=== PATIENT | female | born 1990 | race American Indian/Alaskan Native ===

== ENCOUNTER 2019-04-08 22:34 | Inpatient (IN) | payer MEDICAID, OTHER ==
[2019-04-09] MEDS ORDERED: STADOL IV PRN (00:45)
[2019-04-09] MEDS ORDERED: PITOCin/NS 30 UNIT/500ML 30 UNITS/500 ML BAG IV SCH (00:47)
[2019-04-09 00:53] LABS: Hematocrit 31.6 % (30.3-42.9); Hemoglobin 10.3 gm/dl (10.1-14.3); Mean Corpuscular HGB Conc 33 % (30-34); Mean Corpuscular Volume 77 fl (79-97); Platelet Count 327 K/mm3 (140-440); Red Blood Count 4.09 M/mm3 (3.65-5.03); Red Cell Distribution Width 14.4 % (13.2-15.2)
[2019-04-09] MEDS: LACTATED RINGERS 1,000 ML IV SCH ×2 (01:33→05:35)
[2019-04-09] MEDS ORDERED: NARCAN 2 MG/2 ML IV PRN (06:29)
--- NOTE | 2019-04-09 06:30 | Anesthesia Consultation ---
Anesthesia Consult and Med Hx Date of service: 04/09/19 - Airway Anesthetic Teeth Evaluation: Good ROM Head & Neck: Adequate Mental/Hyoid Distance: Adequate Mallampati Class: Class II Intubation Access Assessment: Probably Good - Pulmonary Exam CTA: Yes - Cardiac Exam Cardiac Exam: RRR - Pre-Operative Health Status ASA Pre-Surgery Classification: ASA2 Proposed Anesthetic Plan: Epidural - Pulmonary Hx Asthma: No COPD: No Hx Pneumonia: No - Cardiovascular System Hx Hypertension: No - Central Nervous System Hx Seizures: No Hx Psychiatric Problems: No - Endocrine Hx Renal Disease: No Hx End Stage Renal Disease: No Hx Hypothyroidism: No Hx Hyperthyroidism: No - Hematic Hx Anemia: No Hx Sickle Cell Disease: No (TRAIT)
--- NOTE | 2019-04-09 06:31 | Anesthesia Day of Surgery ---
Anesthesia Day of Surgery - Day of Surgery Patient Examined: Yes Patient H&P Reviewed: Yes Patient is NPO: No
[2019-04-09] MEDS ORDERED: fentaNYL-BUPIV 2 MCG/ML-0.125% 200 MCG/100 ML BAG EPIDURAL SCH (07:00)
--- NOTE | 2019-04-09 08:41 | Event Note ---
Date: 04/09/19 Assumed care of patient at 08:00. Patient reports she has ruptured membranes with meconium. Patient is resting in lateral position with oxygen per face mask. She has been receiving Pitocin augmentation of labor. Category 2 heart rate tracing: Normal baseline FHR with moderate variability and accelerations with occasional variable FHR deceleration. No repetitive decelerations. Patient is comfortable since receiving epidural.
[2019-04-09] MEDS ORDERED: PITOCin/NS 20 UNIT/1000ML DRIP 20,000 MILLIUNITS/1,000 ML BAG IV ONE (09:01)
--- NOTE | 2019-04-09 09:03 | History and Physical Report ---
History of Present Illness Date of examination: 04/09/19 Date of admission: 04/08/2019 Chief complaint: Leaking of fluid History of present illness: 29 year old complains of leaking of water from vagina since between 5 PM and 6 PM yesterday evening. Patient states fluid was green when water broke. Patient also reports contractions. Patient denies vaginal bleeding. Patient received care at [facility] and records are available. LMP 07/02/18. EDC 04/08/19 (confirmed by 12 week US). EGA 40 weeks, 1 day gestation. significant for the following: anemia (supplemented with oral iron), trichomonas (treated), ASC-US pap with + HR HPV. labs are as follows: O+, antibody screen negative, rubella immune, RPR nonreactive, hepatitis B surface antigen negative, HIV negative, hemoglobin electrophoresis AA, GC negative, CT negative, trichomonas negative/positive/negative, 1 hour sugar test 96, GBS negative. Past History Past Medical History: no pertinent history Past Surgical History: other (EAB 2009) [facility] History: abnormal PAP smear, trichomonas (treated and cured). denies: chlamydia, gonorrhea, hepatitis B, hepatitis C, herpes, HIV, syphilis Family/Genetic History: cancer (ovarian cancer (mother, age 38)) Social history: single, lives with family, smoking, full code, other (marijuana use early in ). denies: alcohol abuse, IV drug use - Obstetrical History Expected Date of Delivery: 04/08/19 Actual Gestation: 40 Week(s) 1 Day(s) : 2 Para: 0 Hx # Term Pregnancies: 0 Number of Pregnancies: 0 Spontaneous Abortions: 0 Induced : 1 Number of Living Children: 0 Medications and Allergies Allergies Allergy/AdvReac Type Severity Reaction Status Date / Time No Known Allergies Allergy Unverified 04/08/19 23:51 Home Medications Medication Instructions Recorded Confirmed Last Taken Type No Known Home Medications [No 04/09/19 04/09/19 Unknown History Reported Home Medications] Active Meds: Active Medications Butorphanol Tartrate (Stadol) 2 mg IV Q2H PRN PRN Reason: Pain , Severe (7-10) Last Admin: 04/09/19 01:42 Dose: 2 mg Documented by: Ephedrine Sulfate (Ephedrine Sulfate) 10 mg IV Q2M PRN PRN Reason: Hypotension Oxytocin/Sodium Chloride (Pitocin/Ns 30 Unit/500ml) 30 units in 500 mls @ 4 mls/hr IV TITR JAVON; Protocol Last Admin: 04/09/19 01:34 Dose: 4 ml/hr, 4 mls/hr Documented by: Lactated Ringer's (Lactated Ringers) 1,000 mls @ 125 mls/hr IV DIRECT JAVON Last Admin: 04/09/19 05:35 Dose: 125 mls/hr Documented by: Fentanyl/Bupivacaine/Sodium Chlor (Fentanyl-Bupiv 2 Mcg/Ml-0.125%) 200 mcg in 100 mls @ 12 mls/hr EPIDURAL TITR JAVON; Protocol Last Admin: 04/09/19 06:48 Dose: 12 mls/hr Documented by: Naloxone HCl (Narcan 2 Mg/2 Ml) 0.2 mg IV Q5M PRN PRN Reason: Respiratory sedation Review of Systems All systems: negative (leaking of fluid and contractions) - Vital Signs Vital signs: Vital Signs Pulse BP 97 H 127/75 04/08/19 22:44 04/08/19 22:44 Temp Pulse Resp BP Pulse Ox 98.3 F 65 18 100/57 100 04/09/19 07:51 04/09/19 08:54 04/09/19 07:51 04/09/19 08:47 04/09/19 08:54 - Physical Exam Abdomen: Positive: normal appearance, soft. Negative: distention, tenderness, guarding, rigidity Genitourinary (Female): Positive: normal external genitalia, normal perenium. Negative: perineal/vulvar lesions Uterus: Positive: enlarged (size=dates) Extremities: Positive: normal. Negative: tenderness, edema - Obstetrical FHR: category 2 Uterine Contraction Monitor Mode: External Cervical Dilatation: 5 Cervical Effacement Percentage: 90 station: -1 Uterine Contraction Pattern: Irregular Uterine Contraction Intensity: Moderate Results Result Diagrams: 04/08/19 23:20 Abnormal lab results 04/08/19 Range/Units 23:20 MCV 77 L (79-97) fl MCH 25 L (28-32) pg All other labs normal. Assessment and Plan A: at 40 weeks, 1 day gestation. Spontaneous rupture of membranes; meconium stained amniotic fluid. GBS negative. P: Continuous EFM. Pitocin augmentation of labor as tolerated by fetus and patient.
[2019-04-09] MEDS ORDERED: NACL 0.9% 1000 ML 1,000 ML ONE (09:38)
--- NOTE | 2019-04-09 09:45 | Event Note ---
Date: 04/09/19 IUPC placed. Amnioinfusion ordered.
[2019-04-09] MEDS ORDERED: BRETHINE SUB-Q PRN (09:57)
[2019-04-09] MEDS ORDERED: LACTATED RINGERS 1,000 ML IV SCH ×2 (10:00→12:00)
[2019-04-09] MEDS ORDERED: NACL 0.9% 1000 ML 1,000 ML VG SCH (10:00)
[2019-04-09] MEDS ORDERED: PITOCin/NS 20 UNIT/1000ML DRIP 20 UNITS/1,000 ML BAG IV SCH ×3 (10:00→13:00)
[2019-04-09] MEDS ORDERED: AMPICILLIN/NS 2 GM/100 ML 2 GM/100 ML BAG IV ONE (11:19)
--- NOTE | 2019-04-09 11:51 | Event Note ---
Date: 04/09/19 Late declerations noted per monitor. Normal baseline FHR and moderate variability. Spoke with Dr. Espinoza re: FHR tracing and section called. Discussed need for C/S with patient and family.
[2019-04-09] MEDS ORDERED: PEPCID IV ONE ×2 (11:54→11:58)
[2019-04-09] MEDS ORDERED: BICITRA PO ONE (11:54)
[2019-04-09] MEDS ORDERED: REGLAN IV ONE (11:54)
[2019-04-09] MEDS ORDERED: BICITRA ONE (11:57)
[2019-04-09] MEDS ORDERED: REGLAN ONE (11:57)
[2019-04-09] MEDS ORDERED: ANCEF/STERILE WATER 2 GM/20 ML 2 GM/20 ML SYRINGE IV ONE (11:58)
[2019-04-09] MEDS ORDERED: ANCEF/STERILE WATER 2 GM/20 ML 2 GM/20 ML SYRINGE IV NR (12:00)
[2019-04-09] MEDS ORDERED: WATER FOR IRRIG STERILE IR ONE (12:18)
[2019-04-09] MEDS ORDERED: NACL 0.9% IR ONE (12:18)
[2019-04-09] MEDS ORDERED: XYLOCAINE MPF 2% ONE (12:48)
--- NOTE | 2019-04-09 12:49 | Operative Report ---
Operative Report Operative Report: Date of procedure: 04/09/2019 Pre-operative diagnosis: 1. Intrauterine of 40-1/7 weeks 2. Non-re assuring surveillance Post-operative diagnosis: Same Procedure name(s): Primary low transverse section Surgeon: Allan Espinoza MD Exhaust Machine Operator: None Anesthesia: Epidural anesthesia by Clinton Ngo CRNA EBL: 800 mL Findings: A 2615 g male infant Apgars 8 at 1 minute 9 at 5 minutes. 2+ meconium fluid. Normal uterus. Normal tubes and ovaries bilaterally. Procedure: After the patient was prepped and draped in usual sterile fashion, and after satisfactory level of epidural anesthesia was obtained, the skin knife was used to make a transverse skin incision. The incision was excised down to layer of the fascia, which was nicked in the midline and extended laterally using the Bovie cautery. The rectus muscles were dissected off the rectus fascia both superiorly and inferiorly. The rectus bellies in the midline, and the peritoneum was entered under direct visualization. The peritoneal incision was extended superiorly and inferiorly. A bladder flap was created and the bladder blade was then placed. The uterus was scored in a curvilinear linear fashion, entered in the midline revealing 2+ meconium amniotic fluid. The infant's head was delivered onto the surgical field, and the oropharynx and nasopharynx were bulb suctioned. The rest of the 's body was delivered, cord was doubly clamped and cut and the was handed to the waiting respiratory team. Cord blood was then obtained. The placenta was manually removed from the uterus, and the uterus removed from its normal anatomical position. After gentle uterine lavage, the incision was inspected and found to be without extensions. It was then closed in 2 layers using 0 Vicryl suture in a running interlocking fashion, the second layer imbricating the first. After good hemostasis was achieved, copious amounts or irrigation was performed, and the gutters were suctioned free of blood and blood clots. Tisseel sealant was sprayed across the uterine incision. The uterus was then returned to its normal anatomical position, and after excellent hemostasis assured, the peritoneum was re-approximated using 3-0 Vicryl suture in a running interlocking fashion, and then the rectus muscles were re-approximated using 3-0 Vicryl suture in a [id number] configuration. The fascia was then re- approximated using 0 Vicryl suture in running interlocking fashion. The subcutaneous layer was made hemostatic using Bovie cautery, the Tisseel sealant was sprayed across the fascial incision and the skin edges re-approximated using 4-0 Vicryl suture in a sub-cuticular fashion. Patient tolerated the procedure well was transported to recovery in stable condition.
[2019-04-09] MEDS ORDERED: SENOKOT PO PRN (12:55)
[2019-04-09] MEDS ORDERED: ZOFRAN IV PRN ×2 (12:55→13:13)
[2019-04-09] MEDS ORDERED: LANSINOH TP PRN (12:55)
[2019-04-09] MEDS ORDERED: TUCKS PAD TP PRN (12:55)
[2019-04-09] MEDS ORDERED: TYLENOL PO PRN (12:55)
[2019-04-09] MEDS ORDERED: NARCAN 0.4 MG/1 ML IV PRN ×2 (12:55→13:13)
[2019-04-09] MEDS ORDERED: SODIUM CHLORIDE FLUSH SYRINGE 10 ML IV NR ×2 (13:00→14:00)
--- NOTE | 2019-04-09 13:07 | Post Anesthesia Evaluation ---
- Post Anesthesia Evaluation Patient Participated: Yes Airway Patent: Yes Stable Respiratory Function: Yes Nausea/Vomiting: No Temp > 96.8F: Yes Pain Manageable: Yes Adequeate Hydration: Yes Anesthesia Complications: No Block Receding Appropriately: Yes
[2019-04-09] MEDS ORDERED: PHENERGAN PR PRN (13:13)
[2019-04-09] MEDS ORDERED: PHENERGAN PO PRN (13:13)
[2019-04-09] MEDS ORDERED: NUBAIN IV PRN (13:13)
[2019-04-09] MEDS ORDERED: DILAUDID IV PRN ×2 (13:13)
[2019-04-09 15:18] LABS: Amphetamine Screen,Urine PRESUMPTIVE NEGATIVE; Benzodiazepines Screen,Urine PRESUMPTIVE NEGATIVE; Cocaine Screen,Urine PRESUMPTIVE NEGATIVE; Methadone Screen,Urine PRESUMPTIVE NEGATIVE; Opiate Screen,Urine PRESUMPTIVE NEGATIVE
[2019-04-09] MEDS ORDERED: AMPICILLIN/NS 1 GM/50 ML 1 GM/50 ML BAG IV SCH (15:22)
[2019-04-09] MEDS: TORADOL IV PRN (15:28)
[2019-04-09] MEDS: D5LR 1,000 ML IV SCH ×2 (15:30→23:03)
[2019-04-09 15:34] LABS: Cannabinoid Screen,Urine PRESUMPTIVE POSITIVE
[2019-04-09] MEDS: TORADOL IV SCH (20:30)
[2019-04-09] MEDS: TYLENOL PO SCH (20:34)
[2019-04-09] MEDS: NORCO 5/325 PO PRN (23:02)
[2019-04-09] MEDS: MYLICON PO PRN (23:03)
[2019-04-09] MEDS: ANCEF/NS 1 GM/50 ML 1 GM/50 ML BAG IV SCH (23:09)
[2019-04-10 00:43] LABS: Hematocrit 28.2 % (30.3-42.9); Hemoglobin 9.2 gm/dl (10.1-14.3)
[2019-04-10] MEDS: TORADOL IV PRN (01:52)
[2019-04-10] MEDS: TORADOL IV SCH ×4 (02:19→20:25)
[2019-04-10] MEDS: TYLENOL PO SCH ×4 (02:40→20:20)
[2019-04-10] MEDS: ANCEF/NS 1 GM/50 ML 1 GM/50 ML BAG IV SCH (07:25)
[2019-04-10] MEDS: PERCOCET 5/325 PO PRN ×3 (08:25→20:21)
[2019-04-10] MEDS: PRENATAL VITAMIN PO SCH ×2 (08:40→20:24)
[2019-04-10] MEDS: FEOSOL PO SCH ×2 (08:40→20:25)
--- NOTE | 2019-04-10 09:40 | Progress Note ---
Assessment and Plan - Patient Problems (1) S/P primary low transverse Current Visit: Yes Status: Acute Plan to address problem: POD 1 - stable Continue routine postop orders Ambulation, abdominal binder encouraged, as tolerated Anticipate discharge in 24 to 48 hours (2) Anemia due to blood loss, acute Current Visit: Yes Status: Acute Plan to address problem: Asymptomatic Continue iron therapy (ferrous sulfate 325mg PO daily) Subjective - Subjective Date of service: 04/10/19 Principal diagnosis: POD #1; s/p Primary LTCS Interval history: see H&P, Event Notes and Operative Report Patient reports: appetite normal, voiding normally, flatus, pain poorly controlled, ambulating normally, no dizzy ambulation, no bowel movement : doing well, bottle feeding Objective - Vital Signs Latest vital signs: Vital Signs Temp Pulse Resp BP Pulse Ox 04/10/19 04:54 97.7 F 61 18 98/56 04/10/19 00:58 98.2 F 67 18 100/59 04/09/19 21:08 99.3 F 20 116/72 04/09/19 21:07 67 04/09/19 16:06 98.2 F 20 114/74 04/09/19 16:05 71 04/09/19 15:28 20 04/09/19 14:00 97.8 F 04/09/19 13:55 72 16 104/69 98 04/09/19 13:40 63 16 99/57 98 04/09/19 13:25 63 15 96/53 95 04/09/19 13:05 68 15 98/49 93 04/09/19 13:00 71 16 88/47 93 04/09/19 12:55 77 12 88/47 97 04/09/19 12:53 97.5 F L 77 15 91/46 95 04/09/19 11:59 109 H 100 04/09/19 11:54 116 H 100 04/09/19 11:49 73 100 04/09/19 11:47 68 120/76 04/09/19 11:44 73 100 04/09/19 11:39 67 100 04/09/19 11:34 74 100 04/09/19 11:29 77 100 04/09/19 11:24 70 100 04/09/19 11:19 78 100 04/09/19 11:18 74 117/77 04/09/19 11:14 84 99 04/09/19 11:12 98.2 F 18 04/09/19 11:09 81 100 04/09/19 11:04 78 100 04/09/19 11:02 67 118/79 04/09/19 10:59 66 100 04/09/19 10:54 70 100 04/09/19 10:49 70 100 04/09/19 10:48 68 121/77 04/09/19 10:44 70 100 04/09/19 10:39 71 04/09/19 10:34 69 04/09/19 10:32 69 113/76 04/09/19 10:29 68 100 04/09/19 10:24 69 04/09/19 10:23 66 112/76 04/09/19 10:19 69 04/09/19 10:14 68 100 04/09/19 10:09 66 100 04/09/19 10:04 66 04/09/19 09:59 69 04/09/19 09:54 69 04/09/19 09:49 71 04/09/19 09:44 72 04/09/19 09:39 72 100 Intake and Output 04/09/19 04/10/19 04/10/19 23:59 07:59 15:59 Intake Total 993.75 240 Output Total 900 450 Balance 93.75 -210 Intake: IV 993.75 ANCEF/NS 1 GM/50 ML 1 gm 50 In 50 ml @ 100 mls/hr IV Q8H JAVON Rx#:[id number] 1,000 ml @ 125 mls/ 943.75 hr IV DIRECT JAVON Rx#: [id number] Intake, Free Water 240 Output: Urine 900 450 Indwelling Catheter 900 300 Void 150 Other: Total, Output Amount 900 150 # Voids Void 1,000 - Exam Abdomen: Present: normal appearance, soft Vulva: both: normal Uterus: Present: normal, firm, fundal height at umbilicus Extremities: Present: normal Incision: Present: normal, dry, intact, dressed Comments: scant lochia - Labs Labs: Abnormal lab results 04/10/19 Range/Units 00:21 Hgb 9.2 L (10.1-14.3) gm/dl Hct 28.2 L (30.3-42.9) %
[2019-04-10] MEDS ORDERED: M-M-R II VACCINE SUB-Q ONE (13:00)
[2019-04-10] MEDS ORDERED: BOOSTRIX IM ONE (13:00)
[2019-04-11] MEDS: MYLICON PO PRN (01:13)
[2019-04-11] MEDS: MILK OF MAGNESIA PO PRN (01:13)
[2019-04-11] MEDS: TYLENOL PO SCH ×3 (01:39→08:00)
[2019-04-11] MEDS: TORADOL IV SCH ×3 (01:40→12:00)
[2019-04-11] MEDS: IBUPROFEN PO PRN ×3 (01:48→22:05)
[2019-04-11] MEDS: PERCOCET 5/325 PO PRN ×3 (03:32→17:06)
[2019-04-11] MEDS: FEOSOL PO SCH (10:36)
[2019-04-11] MEDS: PRENATAL VITAMIN PO SCH (10:36)
--- NOTE | 2019-04-11 13:26 | Progress Note ---
Assessment and Plan A: /postop day 2 S/P primary low transverse section. Anemia secondary to and blood loss. P: Supplement with iron. Encouraged ambulation. Anticipate discharge tomorrow if patient continues to do well. Subjective - Subjective Date of service: 04/11/19 Principal diagnosis: POD #2; s/p Primary LTCS Interval history: /postop day 2 S/P primary low transverse section. Doing well. Ambulating without difficulty; voiding without difficulty. Passing gas. Tolerating a regular diet without nausea or vomiting. Patient denies headache, cough, chest pain, shortness of breath, leg pain, abdominal pain, or heavy bleeding. Patient reports: appetite normal, voiding normally, pain well controlled, flatus, ambulating normally, no dizzy ambulation, no nauseated : doing well Objective - Vital Signs Latest vital signs: Vital Signs Temp Pulse Resp BP Pulse Ox 04/11/19 09:14 97.5 F L 60 16 108/62 98 04/10/19 23:44 98.0 F 71 16 112/70 100 04/10/19 19:35 16 04/10/19 19:32 98.2 F 72 121/62 97 - Exam Cardiovascular: Present: Regular rate, Normal S1, Normal S2, No murmurs Lungs: Present: Clear to auscultation Abdomen: Present: normal appearance, soft, normal bowel sounds. Absent: distention, tenderness, guarding, rigidity Uterus: Present: normal, firm, fundal height below umbilicus. Absent: boggi ness, tenderness Extremities: Present: normal. Absent: tenderness, edema Incision: Present: normal, dry, intact
[2019-04-11] MEDS: NORCO 5/325 PO PRN (22:05)
[2019-04-12] MEDS: MILK OF MAGNESIA PO PRN (01:12)
[2019-04-12] MEDS: PERCOCET 5/325 PO PRN (06:18)
[2019-04-12] MEDS: IBUPROFEN PO PRN (06:18)
[2019-04-12] MEDS: PRENATAL VITAMIN PO SCH (09:56)
[2019-04-12] MEDS: FEOSOL PO SCH (09:56)
[2019-04-12 10:57] VITALS: BP 121/80
--- NOTE | 2019-04-12 11:34 | Progress Note ---
Assessment and Plan A: /postop day 3 S/P primary low transverse section. Anemia secondary to and blood loss. P: Discharge patient home today. /postop discharge instructions and warning signs discussed with patient in detail. Advised patient re: activity restrictions and care of incision. Advised patient to continue taking her vitamins and iron supplements at home. Advised patient to avoid intercourse, lifting and heavy housework, driving, and stair climbing. Advised patient to follow up at [facility] in 1 week for incision check; advised patient to call the office tomorrow morning to schedule the follow up appointment. Patient voiced understanding of instructions. Subjective - Subjective Date of service: 04/12/19 Principal diagnosis: POD #3; s/p Primary LTCS Interval history: /postop day 3 S/P primary low transverse section. Doing well. Ambulating without difficulty; voiding without difficulty. Passing gas. Tolerating a regular diet without nausea or vomiting. Patient denies headache, cough, chest pain, shortness of breath, leg pain, abdominal pain, or heavy bleeding. Patient reports a small amount of lochia. Patient desires discharge today. Patient reports: appetite normal, voiding normally, pain well controlled, flatus, ambulating normally, no dizzy ambulation, no nauseated [place]: doing well Objective - Vital Signs Latest vital signs: Vital Signs Temp Pulse Resp BP BP 04/12/19 08:17 97.8 F 16 121/80 04/12/19 00:00 98.7 F 69 18 128/85 Intake and Output 04/11/19 04/12/19 04/12/19 23:59 07:59 15:59 Intake Total 300 Balance 300 Intake: Intake, Free Water 300 - Exam Cardiovascular: Present: Regular rate, Normal S1, Normal S2, No murmurs Lungs: Present: Clear to auscultation Abdomen: Present: normal appearance, soft, normal bowel sounds. Absent: distention, tenderness, guarding, rigidity Uterus: Present: normal, firm, fundal height below umbilicus. Absent: bogginess Extremities: Present: normal. Absent: tenderness, edema Incision: Present: normal, dry, intact
--- NOTE | 2019-04-12 11:39 | Discharge Summary ---
Providers - Providers Date of Admission: 04/09/19 09:57 Date of discharge: 04/12/19 Attending physician: BRENDON WORKMAN MD 04/09/19 19:15 Consult to Case Management [CONS] Routine Services Needed at Discharge: Medical Health Researcher Notified:: criminal justice social worker Phone number called:: [phone] Was contact made?: No Time called:: 19:21 Comment:: no answer Additional Physician Instructions: THC urine positive on admission Primary care physician: BRENDON WORKMAN MD Hospitalization Reason for admission: rupture of membranes, other (augmentation of labor) Delivery: Procedure: primary low transverse Incision: normal, dry, intact Other procedures: none complications: none Discharge diagnosis: IUP at term delivered [place] baby: male Pertinent studies: Labs Hospital course: Normal hospital course Condition at discharge: Good Disposition: DC-01 TO HOME OR SELFCARE - Discharge Diagnoses (1) Term delivered Status: Acute (2) Anemia, blood loss Status: Acute Plan - Discharge Medications Prescriptions: Ferrous Sulfate [Feosol 325 MG tab] 325 mg PO BID #60 tablet Ibuprofen [Motrin] 800 mg PO Q8HR PRN #30 tablet PRN Reason: Pain, Mild (1-3) HYDROcodone/APAP 5-325 [[place] 5/325] 1 each PO Q6HR PRN #30 tablet PRN Reason: Pain Vit-Fe Fumar-FA [ Vitamin] 1 tab PO QDAY #30 tablet - Provider Discharge Summary Activity: routine, no sex for 6 weeks, no heavy lifting 4 weeks, no strenuous exercise Diet: routine Instructions: routine Additional instructions: Call your doctor immediately for: * Fever > 100.5 * Heavy vaginal bleeding ( >1 pad per hour) * Severe persistent headache * Shortness of breath * Reddened, hot, painful area to leg or breast * Drainage or odor from incision. * Keep incision clean and dry at all times and follow doctor's instructions regarding bathing/showering - Follow up plan Follow up: BRENDON WORKMAN MD [Primary Care Provider] - 7 Days Forms: [facility] Discharge Summary, Discharge Signature Page
== END 2019-04-12 15:45 | disposition home or self-care (01) | DRG 765 ==
LOC: TRG 22:34 → LD 04-09 00:02 → TRG 04-09 09:57 → OB 04-09 15:10
PROVIDERS: ADMIT Obstetrics & Gynecology; ATTEND Obstetrics & Gynecology
PROC: 10D00Z1 Extraction of Products of Conception, Low, Open Approach (ICD-10-PCS; principal; 2019-04-09)
PROC: 3E0234Z Introduction of Serum, Toxoid and Vaccine into Muscle, Percutaneous Approach (ICD-10-PCS; 2019-04-10)
PROC: 3E0134Z Introduction of Serum, Toxoid and Vaccine into Subcutaneous Tissue, Percutaneous Approach (ICD-10-PCS; 2019-04-10)
DX: O99.02 Anemia complicating childbirth (principal); D62 Acute posthemorrhagic anemia; O77.0 Labor and delivery complicated by meconium in amniotic fluid; Z3A.40 40 weeks gestation of pregnancy; O76 Abnormality in fetal heart rate and rhythm complicating labor and delivery; Z37.0 Single live birth; O48.0 Post-term pregnancy; Z23 Encounter for immunization
CPT/HCPCS: 36415; 80307; 85014; 85018; 85027; 86592; 86850; 86900; 86901; G0378; C9250; J0595; J0690; J1885; J2590; J2765; J7030; J7120; J7121